=== PATIENT | male | born 2000 | race Two or more races ===

== ENCOUNTER 2024-02-15 23:04 | Emergency (ER) | payer OTHER ==
[~2024-02-15] VITALS: Ht 170.2 cm; Wt 98.4 kg
[2024-02-16] MEDS ORDERED: ACET500T58 PO (02:32)
[2024-02-16] MEDS ORDERED: CYCL-837 PO (02:32)
[2024-02-16 02:38] VITALS: BP 124/72; PULSE 93; RESP 18; TEMP 98.4; O2SAT 96
== END 2024-02-16 02:49 | disposition home or self-care (01) ==
LOC: ER 23:04
DX: S29.012A Strain of muscle and tendon of back wall of thorax, initial encounter (principal); R51.9 Headache, unspecified; M54.2 Cervicalgia; Z88.0 Allergy status to penicillin; V43.62XA Car passenger injured in collision with other type car in traffic accident, initial encounter; Y93.89 Activity, other specified; Y92.89 Other specified places as the place of occurrence of the external cause; Y99.8 Other external cause status